=== PATIENT | female | born 1940 | race African-American/Black ===

== ENCOUNTER 2018-06-21 17:16 | Inpatient (IN) | payer OTHER ==
[~2018-06-21] VITALS: Ht 167.6 cm; Wt 120.2 kg
[~2018-06-21 17:16] MED LIST: ALLOPURINOL100 MG PO; AMLODIPINE BESY10 MG PO; ASPIR 8181 MG PO; ATORVASTATIN CA10 MG PO; LOSARTAN POTASS25 MG PO; METOPROLOL SUCC50 MG PO
[2018-06-21] MEDS ORDERED: ASPIRIN 81 MG CHEW TAB PO ONE ×2 (18:00)
[2018-06-21 18:13] LABS: BASOPHILS % 0.3 % (0.0-1.0); EOSINOPHILS # (AUTO) 0.1 (0.0-0.4); HEMATOCRIT 39.5 % (34.2-44.1); HEMOGLOBIN 13.1 g/dL (12.0-16.0); LYMPHOCYTES # (AUTO) 3.1 (1.0-3.2); LYMPHOCYTES % 38.6 % (18.0-39.1); MEAN CORPUSCULAR HEMOGLOBIN 29.6 pg (28-32); MEAN CORPUSCULAR HGB CONC 33.2 g/dL (31-35); MEAN CORPUSCULAR VOLUME 89.2 fL (81-99); MONOCYTES # (AUTO) 0.9 (0.2-0.8); MONOCYTES % 11.6 % (4.4-11.3); NEUTROPHILS # (AUTO) 3.8 (2.1-6.9); NEUTROPHILS % 48.2 % (38.7-80.0); PLATELET COUNT 276 x10e3/uL (140-360); RED BLOOD COUNT 4.43 x10e6/uL (3.6-5.1); RED CELL DISTRIBUTION WIDTH 13.2 % (11.7-14.4)
[2018-06-21 18:15] LABS: INR 0.95; PROTHROMBIN TIME 13.6 seconds (11.9-14.5)
[2018-06-21 18:16] LABS: PARTIAL THROMBOPLASTIN TIME 26.7 seconds (23.8-35.5)
[2018-06-21 18:24] LABS: ALBUMIN 3.9 g/dL (3.5-5.0); CALCIUM 9.5 mg/dL (8.4-10.2); CREATININE, SERUM 1.16 mg/dL (0.57-1.11)
[2018-06-21 18:30] LABS: CREATINE KINASE MB 5.8 ng/mL (0-5.0)
[2018-06-21 19:13] LABS: BILIRUBIN,URINE NEGATIVE (NEGATIVE); CLARITY,URINE SL CLOUDY (CLEAR); COLOR,URINE YELLOW (YELLOW); KETONES,URINE NEGATIVE (NEGATIVE); LEUKOCYTE ESTERASE ,URINE 1+ (NEGATIVE); NITRITE,URINE NEGATIVE (NEGATIVE); PROTEIN,URINE DIPSTICK TRACE (NEGATIVE); URINE UROBILINOGEN 0.2 mg/dL (0.2 - 1)
--- NOTE | 2018-06-21 19:17 | NUR ---
Walking rounds with Matthieu. RN. Patient in no distress at this time.
[2018-06-21 19:23] LABS: BACTERIA,URINE MANY /HPF; EPITHELIAL CELLS,URINE FEW /LPF
--- NOTE | 2018-06-21 19:32 | Diagnostic Imaging Report ---
EXAMINATION: CHEST SINGLE (PORTABLE) COMPARISON: None INDICATION: Intermittent chest pain, shortness of breath DISCUSSION: Frontal view of the chest obtained at 1819 hours. HEART AND MEDIASTINUM: The heart is enlarged LINES: None. LUNGS: Pulmonary vasculature is prominent. There is mild bronchial wall thickening. No confluent infiltrates. No interstitial edema. PLEURA: No pleural effusion or pneumothorax. BONES AND SOFT TISSUES: No focal osseous lesion. The soft tissues are normal. IMPRESSION: Cardiomegaly and vascular congestion. Signed by: Dr. Steven Soler MD on 06/21/2018 7:17 PM
[2018-06-21] MEDS ORDERED: MORPHINE SULFATE 2 MG/ML SYR IV PRN (20:00)
[2018-06-21] MEDS ORDERED: NITROGLYCERIN 0.4 MG SUBL SL PRN (20:00)
[2018-06-21] MEDS ORDERED: ONDANSETRON HCL INJ 2 MG/ML VIAL IV PRN (20:00)
[2018-06-21] MEDS: ENOXAPARIN SODIUM INJ 100 MG/ML SYR SC SCH (20:01)
--- OUTSIDE RECORDS SUMMARY | 2018-06-21 20:12 | XMS REPORT ---
Author Author [facility] Address Unknown Phone Unavailable Care Team Providers Care Plastic Worker Name Role Phone Blanka ARCE Unavailable Unavailable Problems This patient has no known problems. Allergies, Adverse Reactions, Alerts This patient has no known allergies or adverse reactions. Medications This patient has no known medications. Results Test Description Test Time Test Comments Text Results Atomic Results Result Comments CHEST SINGLE (PORTABLE) 2018-06-21 19:16:00 [facility] [address] [place] [address] Patient Name: EDISON DACOSTA MR #: [id number] : 1940 Age/Sex: 78/F Req #: [id number] Adm Physician: Ordered by: JENNIFER ARCE MD Report #: [id number] Location: ER Room/Bed: Procedure: [id number] DX/CHEST SINGLE (PORTABLE) Exam Date: 06/21/18 Exam Time: 1832 REPORT STATUS: Signed EXAMINATION: CHEST SINGLE (PORTABLE) COMPAR KAIT: None INDICATION: Intermittent chest pain, shortness of breath DISCUSSION: Frontal view of the chest obtained at 1819 hours. HEART AND MEDIASTINUM: The heart is enlarged LINES: None. LUNGS: Pulmonary vasculature is prominent. There is mild bronchial wall thickening. No confluent infiltrates. No interstitial edema. PLEURA: No pleural effusion or pneumothorax. BONES AND SOFT TISSUES: No focal osseous lesion. The soft tissues are normal. IMPRESSION: Cardiomegaly and vascular congestion. Signed by: Dr. Susu Soler MD on 06/21/2018 7:17 PM Dictated By: SUSU SOLER MD 16 Transcribed By: CASIE on 06/21/181916 COPY TO: JENNIFER ARCE MD
[2018-06-21] MEDS ORDERED: MORPHINE SULFATE INJ 4 MG/ML INJ IV PRN (20:15)
--- NOTE | 2018-06-21 20:37 | NUR ---
report given to patrice bedolla
[2018-06-21] MEDS: METOPROLOL TARTRATE 25 MG TAB PO SCH (22:35)
--- NOTE | 2018-06-21 22:54 | NUR ---
RECEIVED PATIENT AAOX4, BREATHING EVEN AND UNLABORED, ON 2L/NC. DENIES ANY PAIN, DENIES CHEST PAIN/TIGHTNESS/DISCOMFORT. SKIN INTACT. 20G LEFT AC SALINE LOCKED, PATENT AND INTACT. TELE # [id number] SR. UPDATED PATIENT ON PLAN OF CARE. NO NEEDS AT THIS TIME. BED LOCKED AND IN LOWEST POSITION, CALL LIGHT WITHIN REACH. BED ALARM ON, SLIP RESIST SOCKS ON. ENCOURAGED TO CALL FOR ASSISTANCE, PATIENT VERBALIZED UNDERSTANDING. WILL CONTINUE TO MONITOR PATIENT CLOSELY.
[2018-06-21 23:56] VITALS: BP 181/110
[2018-06-22] VITALS (8 sets, daily range): BP systolic 155–190; BP diastolic 74–110
[2018-06-22] MEDS: NITROGLYCERIN 2% OINT 1 GM PKT TOP SCH ×5 (00:30→23:27)
[2018-06-22 02:25] LABS: CREATINE KINASE MB 9.8 ng/mL (0-4.3)
[2018-06-22 06:36] LABS: BASOPHILS % 0.5 % (0.0-1.0); EOSINOPHILS # (AUTO) 0.1 (0.0-0.4); EOSINOPHILS % 1.5 % (0.0-6.0); HEMATOCRIT 38.6 % (34.2-44.1); HEMOGLOBIN 12.4 g/dL (12.0-16.0); LYMPHOCYTES # (AUTO) 2.7 (1.0-3.2); LYMPHOCYTES % 44.2 % (18.0-39.1); MEAN CORPUSCULAR HEMOGLOBIN 29.2 pg (28-32); MEAN CORPUSCULAR HGB CONC 32.1 g/dL (31-35); MEAN CORPUSCULAR VOLUME 90.8 fL (81-99); MONOCYTES # (AUTO) 0.9 (0.2-0.8); MONOCYTES % 14.7 % (4.4-11.3); NEUTROPHILS # (AUTO) 2.4 (2.1-6.9); NEUTROPHILS % 38.9 % (38.7-80.0); PLATELET COUNT 217 x10e3/uL (140-360); RED BLOOD COUNT 4.25 x10e6/uL (3.6-5.1); RED CELL DISTRIBUTION WIDTH 13.5 % (11.7-14.4)
[2018-06-22 07:01] LABS: CREATINE KINASE MB 6.5 ng/mL (0-5.0)
[2018-06-22 07:08] LABS: ALANINE AMINOTRANSFERASE 30 IU/L (0-55); ALBUMIN 3.4 g/dL (3.5-5.0); ALKALINE PHOSPHATASE 55 IU/L (40-150); BLOOD UREA NITROGEN 19 mg/dL (7-26); BUN/CREATININE RATIO 22 (6-25); CALCIUM 9.1 mg/dL (8.4-10.2); CARBON DIOXIDE 25 mmol/L (22-29); CHLORIDE 106 mmol/L (98-107); CHOL/HDL RATIO 3.4 (3.0-3.6); CHOLESTEROL 150 MD/DL (0-199); CREATININE, SERUM 0.87 mg/dL (0.57-1.11); EST GLOMERULAR FILTRATION RATE > 60 ML/MIN (60-); GLUCOSE 106 mg/dL (74-118); HDL CHOLESTEROL 44 MG/DL (40-60); LDL CHOLESTEROL 90 MG/DL (60-130); SODIUM 139 mmol/L (136-145); TRIGLYCERIDES 81 MG/DL (0-149)
--- NOTE | 2018-06-22 07:08 | NUR ---
TROPONIN ELEVATED, TRENDING UP. CALL PLACED TO DR. POWELL ANSWERING SERVICE. AWAITING CALL BACK. REPORT GIVEN TO ONCOMING NURSE.
--- NOTE | 2018-06-22 07:15 | NUR ---
Chantal ARCHIBALD NP AWARE OF ELEVATED TROPONIN, NO ORDERS RECEIVED.
--- NOTE | 2018-06-22 07:53 | NUR ---
REPORT RECEIVED FROM OUT GOING NURSE, LAB CALLED IN ELEVATED TROPONIN LEVEL, DR. ARCHIBALD NOTIFIED, NO NEW ORDERS. PT IN BED DENIES CHEST PAIN OR DISCOMFORT. WILL CONTINUE TO MONITOR.
[2018-06-22] MEDS ORDERED: FAMOTIDINE 20 MG/2 ML VIAL IV SCH (08:00)
[2018-06-22] MEDS ORDERED: INFLUENZA VIRUS VAC SPLIT INJ 0.5 ML SYR IM ONE ×2 (09:00→13:00)
[2018-06-22] MEDS: METOPROLOL TARTRATE 25 MG TAB PO SCH ×2 (09:40→20:45)
[2018-06-22] MEDS: ENOXAPARIN SODIUM INJ 100 MG/ML SYR SC SCH ×2 (09:40→20:45)
[2018-06-22] MEDS: ASPIRIN 325 MG TAB EC PO SCH (09:41)
[2018-06-22 11:45] LABS: CREATINE KINASE MB 5.2 ng/mL (0-5.0)
[2018-06-22] MEDS ORDERED: ONDANSETRON HCL INJ 2 MG/ML VIAL IV PRN (11:45)
--- NOTE | 2018-06-22 13:06 | History and Physical ---
PRIMARY CARE PHYSICIAN: Dr. Eugene Santos WATER TRUCK DRIVER: Dr. Roland Barrios. CHIEF COMPLAINT: Non-ST elevation myocardial infarction associated with chest pain. HISTORY: This is a 78-year-old female, obese with hypertension and dyslipidemia. She had occasional chest discomfort, thought it could be reflux where the patient was doing okay off and on, but however when the patient go to the emergency room, she was having exertional chest pressure and pain much intense in duration than compared to previously, which brought the patient subsequently to the emergency room here. Her cardiac enzyme is trending upward 0.55 to 1.539. The patient is admitted for non-ST elevation myocardial infarction. Her echocardiogram reveals an ejection fraction of approximately 45-50%, normal sinus rhythm, with ST-T wave abnormality, possible inferior ischemia. PAST MEDICAL HISTORY: Hypertension, dyslipidemia, osteoarthritis, and obesity. PAST SURGICAL HISTORY: Complete hysterectomy. SOCIAL HISTORY: The patient does not smoke or use alcohol. No recreational drug use. ALLERGIES: NO KNOWN ALLERGIES. HOME MEDICATIONS: She is on allopurinol, aspirin, Lipitor, losartan, and metoprolol succinate. REVIEW OF SYSTEMS: Chest pressure and pain, resolved now. PHYSICAL EXAMINATION GENERAL: The patient is in no acute distress. She is awake. VITAL SIGNS: Temperature is 99. Blood pressure 157/74. Pulse rate is 85. Respirations 18. HEENT: Normocephalic, atraumatic, anicteric. NECK: Supple grossly. PULMONARY: Diminished breath sounds without any wheezing or rales. CARDIOVASCULAR: S1 and S2. Regular rate and rhythm. ABDOMEN: Soft. Positive bowel sounds. Grossly nontender. No distention. Obesity. EXTREMITIES: No cyanosis or edema. NEUROLOGIC: No focal deficit. LABORATORY: Sodium is 139, potassium 4, chloride 106, bicarb 25, BUN 19, and creatinine 0.8. Glucose 106. WBC 6.04, hemoglobin 12.4, hematocrit 38.6, platelets is 270,000. IMPRESSION 1. Non-ST elevation myocardial infarction with abnormal EKG. Ejection fraction is low 45-50%. 2. Obesity. 3. Hypertension. 4. Dyslipidemia. PLAN: Cardiac workup. Echocardiogram done. Dr. Roland Barrios will see the patient. This patient may need cardiac catheterization pending further evaluation by Cardiology. I discussed with the patient and all her family members at bedside. All questions were answered. Job#: [id number] ESTEFANIA cc:DR. EUGENE SANTOS
[2018-06-22] MEDS ORDERED: METOPROLOL TARTRATE INJ 1 MG/ML VIAL IV PRN (15:00)
[2018-06-22 16:00] LABS: ALBUMIN 3.5 g/dL (3.5-5.0); BILIRUBIN,DIRECT 0.3 mg/dL (0.0-0.5); CHOL/HDL RATIO 3.3 (3.0-3.6); MAGNESIUM 2.1 MG/DL (1.3-2.1); PHOSPHORUS 3.1 MG/DL (2.3-4.7)
[2018-06-22 16:14] LABS: THYROID STIMULATING HORMONE 0.022 uIU/mL (0.350-4.940)
[2018-06-22] MEDS: FAMOTIDINE 20 MG TAB PO SCH (17:23)
[2018-06-22] MEDS: ALLOPURINOL 100 MG TAB PO SCH (17:23)
--- NOTE | 2018-06-22 17:51 | NUR ---
PT IN BED VISITING WITH FAMILY AND FRIENDS. DENIES ANY PAIN OR DISCOMFORT AT MOMENT. REMAINED STABLE ALL SHIFT.
--- NOTE | 2018-06-22 19:25 | NUR ---
PATIENT RECEIVED. PATIENT IS RESTING IN BED, AAOX3. RESP EVEN AND UNLABORED. NO ACUTE DISTRESS NOTED. PATIENT DENIES OF ANY PAIN OR DISCOMFORT. TELE IN PLACE. FAMILY AT BED SIDE. CALL LIGHT WITHIN REACH. INSTRUCT TO CALL FOR ASSISTANCE. BED LOW/LOCKED. CONTINUE TO MONITOR CLOSELY
--- NOTE | 2018-06-22 20:40 | NUR ---
CHARGE NURESE START NEW IV TO RIGHT FOREARM 22G. PATIENT TOLERATED WELL
[2018-06-22] MEDS: HYDRALAZINE HCL 20 MG/ML VIAL IV PRN (23:27)
[2018-06-23] VITALS: BP 166/82
[2018-06-23 04:00] VITALS: BP 143/63
[2018-06-23] MEDS: NITROGLYCERIN 2% OINT 1 GM PKT TOP SCH ×3 (06:19→17:57)
--- NOTE | 2018-06-23 07:15 | NUR ---
PT RECEIVED FROM OUT GOING NURSE, NO DISTRESS NOTED.
[2018-06-23 08:00] VITALS: BP 180/95
[2018-06-23] MEDS: METOPROLOL TARTRATE 25 MG TAB PO SCH ×2 (09:27→20:02)
[2018-06-23] MEDS: LOSARTAN POTASSIUM 25 MG TAB PO SCH (09:27)
[2018-06-23] MEDS: ASPIRIN 325 MG TAB EC PO SCH (09:27)
[2018-06-23] MEDS: FAMOTIDINE 20 MG TAB PO SCH ×2 (09:27→17:57)
[2018-06-23] MEDS: ENOXAPARIN SODIUM INJ 100 MG/ML SYR SC SCH ×2 (09:27→20:01)
[2018-06-23] MEDS: ATORVASTATIN 10 MG TAB PO SCH (09:28)
[2018-06-23] MEDS: HYDRALAZINE HCL 20 MG/ML VIAL IV PRN ×2 (09:28→20:10)
[2018-06-23] MEDS: ALLOPURINOL 100 MG TAB PO SCH ×2 (09:28→17:57)
--- NOTE | 2018-06-23 10:19 | NUR ---
PRN HYDRALAZINE 10MG IV GIVEN FOR B/P 180/95 PER MD ORDERS TO GIVE IF SBP > 160. WILL CONTINUE TO MONITOR. PT DENIES ANY PAIN.
[2018-06-23 12:00] VITALS: BP 161/69
[2018-06-23 13:45] VITALS: BP 161/69
--- NOTE | 2018-06-23 14:09 | NUR ---
PT SEEN BY DR. ARCHIBALD, ORDERS FOR NPO AFTER MIDNIGHT WHILE WAITING TO SEE IF UPFITTER OPENS TOMORROW. SHE WILL TEXT DR DR. POWELL.
--- NOTE | 2018-06-23 18:21 | NUR ---
PT IN BED NO DISTRESS NOTED, PT NOTIFIED OF NPO STATUS AFTER MIDNIGHT.REPORT PASSED ON NEXT SHIFT.
--- NOTE | 2018-06-23 19:25 | NUR ---
PATIENT RECEIVED. PATIENT IS RESTING IN BED, AAOX4. RESP EVEN AND UNLABORED. NO ACUTE DISTRESS NOTED. PATIENT DENIES OF ANY PAIN OR DISCOMFORT. TELE IN PLACE. FAMILY AT BED SIDE. CALL LIGHT WITHIN REACH. INSTRUCT TO CALL FOR ASSISTANCE. BED LOW/LOCKED. CONTINUE TO MONITOR CLOSELY
[2018-06-23 20:27] VITALS: BP_SYST 165; BP_SYST 197; BP_DIAS 78; BP_DIAS 80
[2018-06-24] VITALS (7 sets, daily range): BP systolic 154–197; BP diastolic 64–80
[2018-06-24] MEDS: HYDRALAZINE HCL 20 MG/ML VIAL IV PRN ×2 (00:26→06:11)
[2018-06-24] MEDS: NITROGLYCERIN 2% OINT 1 GM PKT TOP SCH ×4 (00:26→16:52)
[2018-06-24] MEDS: ACETAMINOPHEN 325 MG TAB PO PRN ×2 (00:27→18:09)
--- NOTE | 2018-06-24 07:00 | NUR ---
DR POWELL CALLED AND ORDERED FOR PATIENT TO HAVE HEART CATH THIS MORNING. NOTIFIED INFORMATION SYSTEMS PROJECT MANAGER, PRESSING MACHINE TENDER AND ON COMING NURSE.
[2018-06-24] MEDS: FAMOTIDINE 20 MG TAB PO SCH ×2 (08:44→16:00)
[2018-06-24] MEDS: ALLOPURINOL 100 MG TAB PO SCH ×2 (08:44→16:00)
[2018-06-24] MEDS: METOPROLOL TARTRATE 25 MG TAB PO SCH ×2 (08:45→20:50)
[2018-06-24] MEDS: LOSARTAN POTASSIUM 25 MG TAB PO SCH (08:45)
[2018-06-24] MEDS: ATORVASTATIN 10 MG TAB PO SCH (08:45)
[2018-06-24] MEDS: ASPIRIN 325 MG TAB EC PO SCH (09:00)
[2018-06-24] MEDS ORDERED: FENTANYL CITRATE/PF 100MCG/2 ML INJ ONE (10:46)
[2018-06-24] MEDS ORDERED: SODIUM CHLORIDE 0.9% 1000ML 1,000 ML ONE (10:46)
[2018-06-24] MEDS ORDERED: MIDAZOLAM HCL 2 MG/2 ML VIAL ONE (10:46)
[2018-06-24] MEDS ORDERED: IOPAMIDOL 370 MG/ML 200 ML INFUS..BTL INJ ONE (10:46)
[2018-06-24] MEDS ORDERED: HEPARIN SOD/SOD CHLORIDE 2,000 ML ONE (10:46)
[2018-06-24] MEDS ORDERED: LIDOCAINE HCL 2% LOCAL 20 ML VIAL ONE (10:46)
--- NOTE | 2018-06-24 13:27 | NUR ---
PT CAME BACK FROM PROCEDURE ( LT HEART CATH) 1140, V/S STABLE, BED REST FOR 6 HOURS, NURSE REPORTED PT HAS 3 SEVERE VESSELS BLOCKAGE AND WILL NEED A BYPASS SURGERY. RT GROIN AREA LOOKS CLEAN, NO SWOLLEN OR REDNESS, PT IS LYING ON BACK. V/S CHECKS Q 15 MINS X3 AND 30 MINS X 3, THEN WILL CONTINUE Q 4 HOURS. PT IN BED .
--- NOTE | 2018-06-24 19:21 | NUR ---
PT IN BED NO DISTRESS NOTED, RT GROIN SITE LOOKS CLEAN AND DRY.
[2018-06-24] MEDS: SODIUM CHLORIDE 0.9% 1000ML 1,000 ML IV SCH (20:50)
[2018-06-25] VITALS (7 sets, daily range): BP systolic 139–199; BP diastolic 72–95
[2018-06-25] MEDS: HYDRALAZINE HCL 20 MG/ML VIAL IV PRN ×3 (00:40→20:24)
[2018-06-25] MEDS: NITROGLYCERIN 2% OINT 1 GM PKT TOP SCH ×2 (00:40→06:10)
--- NOTE | 2018-06-25 01:05 | Consultation ---
DATE OF CONSULTATION: June 24, 2018 REASON FOR CONSULT: Coronary artery disease, non-ST elevation, myocardial infarction, evaluation for coronary artery bypass surgery; requested by Dr. Yahir Barrios. APPLIANCE SALES ASSOCIATE: Dr. Eugene Arriaza. Dr. Juan Miguel Ulloa has been seen the patient in the hospital. HISTORY: I saw and evaluated this patient on June 24, 2018. She is a 78-year-old lady who has been having occasional chest discomfort over the past year. Pain comes on with exertion and resolves with rest. However, the chest pain persisted yesterday and she came to the emergency room with increasing chest pain. Her cardiac enzymes were positive with troponin 1.539. EKG was at baseline. She ruled in for a unj-SZ-mekbwfeah myocardial infarction. Echocardiogram revealed EF of 45% to 50%. There were ST-T-wave abnormalities consistent with possible inferior ischemia. A cardiac catheterization was completed. This was performed by Dr. Barrios today. Catheterization revealed LVEF 40%. There was an occluded RCA, luminal lesions in the left main, and 80% lesion of the mid LAD, a 60% lesion of the first marginal and a 70% lesion of the second marginal. Surgical revascularization has been recommended. There was no history of PND or orthopnea. The patient has not had previous myocardial infarction or coronary artery stenting. She can go to [employer] and get around as far as she likes without claudication or chest pain in most instances. No fevers or chills. PAST MEDICAL HISTORY: Positive for hyperlipidemia, hypertension, and osteoarthritis. PAST SURGICAL HISTORY: Positive for hysterectomy. SOCIAL HISTORY: Negative for smoking, alcohol or IV drugs. ALLERGIES: NONE KNOWN. MEDICATIONS AT HOME: Include allopurinol, aspirin, Lipitor, losartan and Lopressor. FAMILY HISTORY: Negative for early coronary artery disease. REVIEW OF SYSTEMS: GENERAL: Negative for fatigue and malaise. NEUROLOGIC: Negative for focal weakness in extremities or dysarthria. HEENT: Negative for decreased vision or decreased hearing. CARDIAC: Positive as above. Negative for palpitations. PULMONARY: Negative for shortness of breath or wheezing. GI: No constipation or diarrhea. : Negative for hematuria or dysuria. ENDOCRINE: Negative for polyuria or polydipsia. VASCULAR: Negative for claudication. SKIN: Negative for rashes or itching. HEMATOLOGIC: Negative for clotting or bleeding. INFECTIOUS: Negative for fevers or sweating. PSYCHIATRIC: Negative for depression or anxiety. PHYSICAL EXAMINATION: GENERAL: Well-developed, somewhat overweight lady, lying flat in bed, in no apparent distress. Her son is at the bedside. VITAL SIGNS: Blood pressure 140/70, pulse 80 and regular, respirations are 16 and unlabored. NECK: Supple and nontender. No JVD. CARDIAC: Showed a regular rate and rhythm. There is a normal S1 and S2. There is no S3, S4, rub, or murmur. LUNGS: Clear to auscultation and percussion bilaterally. ABDOMEN: Globoid and benign. Good bowel sounds. No hepatosplenomegaly. BACK: No CVA tenderness. No muscular spasm. EXTREMITIES: No cyanosis, clubbing, or edema. VASCULAR: Carotids 2+/2+ bilaterally. No carotid bruits. Brachials, radials and ulnars are 1+/2+ bilaterally. Femorals are 2+/2+ bilaterally. I could not palpate any pulses distal to either femoral artery in either lower extremity. SKIN: No rashes or non-healing ulcers. MUSCULOSKELETAL: Full range of motion at all joints. No joint swelling. NEUROLOGIC: Cranial nerves II through XII intact. Sensation is intact to light touch and pinprick bilaterally. Strength 5/5 in all extremities. LYMPHATIC: Negative for cervical, clavicular, femoral adenopathy. LABORATORIES: White count is 6.04, hemoglobin 12.4, hematocrit 38.6, platelet count 217,000, INR is 0.95 with PT 13.6 and PTT 26.7. Sodium is 139, potassium 4.0, BUN 19, creatinine 0.87. Liver function tests are normal. Troponin I peak is 1.539, albumin 3.4, and total protein 6.9. Chest x-ray shows cardiomegaly and vascular congestion. IMPRESSION AND PLAN: Severe coronary artery disease. I have reviewed the angiogram as above. I described coronary artery bypass surgery to the patient and her son. Evaluation for surgery has been initiated. Thank you very much for asking me to see this nice lady. Job#: [id number] ALFONSO
[2018-06-25 05:22] LABS: BASOPHILS % 0.4 % (0.0-1.0); EOSINOPHILS # (AUTO) 0.1 (0.0-0.4); EOSINOPHILS % 1.7 % (0.0-6.0); HEMATOCRIT 37.5 % (34.2-44.1); HEMOGLOBIN 12.2 g/dL (12.0-16.0); LYMPHOCYTES # (AUTO) 1.7 (1.0-3.2); LYMPHOCYTES % 31.8 % (18.0-39.1); MEAN CORPUSCULAR HEMOGLOBIN 29.2 pg (28-32); MEAN CORPUSCULAR HGB CONC 32.5 g/dL (31-35); MEAN CORPUSCULAR VOLUME 89.7 fL (81-99); MONOCYTES # (AUTO) 0.8 (0.2-0.8); NEUTROPHILS # (AUTO) 2.8 (2.1-6.9); NEUTROPHILS % 51.9 % (38.7-80.0); PLATELET COUNT 215 x10e3/uL (140-360); RED BLOOD COUNT 4.18 x10e6/uL (3.6-5.1); RED CELL DISTRIBUTION WIDTH 13.6 % (11.7-14.4)
[2018-06-25 05:42] LABS: ALANINE AMINOTRANSFERASE 32 IU/L (0-55); ALBUMIN 3.5 g/dL (3.5-5.0); ALBUMIN/GLOBULIN RATIO 0.9 (0.8-2.0); ALKALINE PHOSPHATASE 53 IU/L (40-150); ANION GAP 13.8 mmol/L (8-16); BLOOD UREA NITROGEN 14 mg/dL (7-26); BUN/CREATININE RATIO 19 (6-25); CALCIUM 9.1 mg/dL (8.4-10.2); CARBON DIOXIDE 20 mmol/L (22-29); CHLORIDE 106 mmol/L (98-107); CREATININE, SERUM 0.73 mg/dL (0.57-1.11); EST GLOMERULAR FILTRATION RATE > 60 ML/MIN (60-); GLUCOSE 99 mg/dL (74-118); POTASSIUM 3.8 mmol/L (3.5-5.1); SODIUM 136 mmol/L (136-145)
--- NOTE | 2018-06-25 07:30 | NUR ---
PT UP IN BED SLEEPING NO DISTRESS NTOED,
[2018-06-25] MEDS: METOPROLOL TARTRATE 25 MG TAB PO SCH ×2 (08:20→20:24)
[2018-06-25] MEDS: ASPIRIN 325 MG TAB EC PO SCH (09:00)
[2018-06-25] MEDS: ALLOPURINOL 100 MG TAB PO SCH ×2 (09:00→17:00)
[2018-06-25] MEDS: ATORVASTATIN 10 MG TAB PO SCH (09:00)
[2018-06-25] MEDS: LOSARTAN POTASSIUM 25 MG TAB PO SCH (09:00)
[2018-06-25] MEDS: FAMOTIDINE 20 MG TAB PO SCH ×2 (09:05→16:30)
--- NOTE | 2018-06-25 12:40 | NUR ---
CREDIT COLLECTIONS ANALYST ATTEMPTED TO CALL TRANSFER CENTER AWAITING DR WRIGHT
[2018-06-25] MEDS: SODIUM CHLORIDE 0.9% 1000ML 1,000 ML IV SCH (16:30)
[2018-06-25] MEDS: ACETAMINOPHEN 325 MG TAB PO PRN (20:35)
[2018-06-26] VITALS: BP_SYST 159; BP_SYST 199; BP_DIAS 78; BP_DIAS 95
[2018-06-26 04:00] VITALS: BP 200/91
[2018-06-26] MEDS: HYDRALAZINE HCL 20 MG/ML VIAL IV PRN ×2 (04:49→09:06)
[2018-06-26] MEDS: SODIUM CHLORIDE 0.9% 1000ML 1,000 ML IV SCH (05:45)
--- NOTE | 2018-06-26 07:45 | NUR ---
PT RECEIVED IN BED NO S/S OF DISTRESS NOTED
[2018-06-26 08:10] VITALS: BP 200/91
[2018-06-26 08:37] VITALS: BP 195/79
[2018-06-26] MEDS ORDERED: ISOSORBIDE DINITRATE 20 MG TAB PO SCH (09:00)
[2018-06-26] MEDS: ASPIRIN 325 MG TAB EC PO SCH (09:05)
[2018-06-26] MEDS: METOPROLOL TARTRATE 25 MG TAB PO SCH (09:05)
[2018-06-26] MEDS: FAMOTIDINE 20 MG TAB PO SCH (09:05)
[2018-06-26] MEDS: ALLOPURINOL 100 MG TAB PO SCH (09:06)
[2018-06-26] MEDS: LOSARTAN POTASSIUM 25 MG TAB PO SCH (09:06)
[2018-06-26] MEDS: ATORVASTATIN 10 MG TAB PO SCH (09:06)
--- NOTE | 2018-06-26 10:37 | NUR ---
Head Of Integrated Media to bedside to discuss plan of care with patient/family. CM/SW role and care transitions discussed. Anticipated discharge plan discussed along with duration of care. CM/SW discussed patients right to make decisions in care. CM/SW work hours given. Patient lives: alone Admit/Transfer: thru ED, from home POA/Emergency contact: kiran Montenegro [phone] Current/Previous Home Health: none PCP/Follow-up Care: Dr. Anjelica Arriaza Current/Previous DME: none; pt reports she is independent and still drives Other Services: none Employment Status: retired Areas of Concerns: Referral Needs: need transfer to [facility] for CABG; choice letter signed and placed in chart. Copy to pt. Education Needs: CABG IMM/PATEL given and signed (if applicable): none at this time Goal for discharge[place] [facility] [place] CM/SW left business card at the bedside with contact information. Name and number was also written on the patients whiteboard. Patient verbalized understanding of discussion. CM will follow-up with ongoing discharge and transition of care needs.
--- NOTE | 2018-06-26 11:10 | NUR ---
Spoke with Savannah at transfer center to initiate transfer to [facility]. Faxed facesheet and H&P as requested to [phone].
--- NOTE | 2018-06-26 11:39 | NUR ---
Received call from Radha Eli RN development coordinator, at [facility] with bed assignment. Approval time 1139 [facility] [address] [place] [address] call report to [phone] Bed [address] Hernandez Yarbrough MOT completed and placed at nurse's station. CM informed ELISE Storm of acceptance and MOT. RN asked to faxed completed MOT to [phone]. CM also informed pt of bed.
[2018-06-26 12:04] VITALS: BP 174/82
--- NOTE | 2018-06-26 12:06 | Operative Report ---
DATE OF PROCEDURE: June 24, 2018 PROCEDURES PERFORMED: Cardiac catheterization report. INDICATIONS: Klt-HI-gcupswwrt MO. ANESTHESIA: 2% lidocaine for local anesthesia. Fentanyl and Versed for conscious sedation. BLOOD LOSS: 2 mL. DESCRIPTION OF PROCEDURE: After informed consent, patient was brought to the cardiac catheterization laboratory and placed on the table. Both groins were painted and draped in a sterile fashion. Lidocaine was injected to right groin for local anesthesia. Right femoral artery was accessed by Seldinger technique, and a 5-[place]atorial [place] sheath was placed in the right femoral artery. Left main artery was cannulated using a JL4 5-Equatorial [place] catheter. Coronary angiogram was performed and images obtained in multiple views. The right coronary artery was cannulated using a 3DRC 5-[place]atorial [place] catheter. Coronary angiogram was performed and images obtained in multiple views. LV gram was performed using a pigtail catheter. Patient tolerated the procedure without any complications. REPORT LEFT MAIN: Normal caliber, has luminal irregularities. LEFT ANTERIOR DESCENDING: Normal caliber, 70% to 80% mid lesion followed by another 70% mid lesion. The 2nd obtuse mild branch is a moderate size vessel and has 60% to 70% proximal lesion. LEFT CIRCUMFLEX: Normal caliber and has luminal irregularities. The 2nd obtuse marginal branch is a large branch and has a 70% proximal lesion. The 1st obtuse marginal branch is a smaller branch with about a 50% to 60% mid lesion. RIGHT CORONARY ARTERY: Totally occluded in its mid segment. LV-GRAM: Diffuse hyperkinesis of the left ventricle is noted. Overall ejection fraction is about a 40%. HEMODYNAMICS: Aortic pressure is 171/65. LV pressure is 171/70. LVEDP is 18. PLAN: CABG. Job#: [id number] MAHIN
--- NOTE | 2018-06-26 14:20 | NUR ---
PT TRANSFERRED TO [facility]. LEFT VIA EMS, ALERT AND ORIENTED X4,NO DISTRESS NOTED. IV LINE INTACT. 02 NEEDED. Addendum: 06/26/18 at 1901 by Emeterio Simpson RN 1520 INSTEAD OF 1420. ERROR
[2018-06-27] MEDS ORDERED: ATORVASTATIN 40 MG TAB PO SCH (09:00)
== END 2018-06-26 15:40 | disposition short-term general hospital (02) | DRG 281 ==
LOC: ER 17:16 → ERHOLD 20:09 → MED/SURG2 22:53
PROVIDERS: ADMIT Internal Medicine; ATTEND Internal Medicine
PROC: 4A023N7 Measurement of Cardiac Sampling and Pressure, Left Heart, Percutaneous Approach (ICD-10-PCS; principal; 2018-06-24)
PROC: B2111ZZ Fluoroscopy of Multiple Coronary Arteries using Low Osmolar Contrast (ICD-10-PCS; 2018-06-24)
PROC: B2151ZZ Fluoroscopy of Left Heart using Low Osmolar Contrast (ICD-10-PCS; 2018-06-24)
DX: I21.4 Non-ST elevation (NSTEMI) myocardial infarction (principal); Z68.41 Body mass index [BMI] 40.0-44.9, adult; I25.119 Atherosclerotic heart disease of native coronary artery with unspecified angina pectoris; I10 Essential (primary) hypertension; E78.5 Hyperlipidemia, unspecified; E66.01 Morbid (severe) obesity due to excess calories; I27.20 Pulmonary hypertension, unspecified
CPT/HCPCS: 36415; 71045; 80053; 80061; 80076; 81001; 82306; 82550; 82553; 83735; 83880; 84100; 84443; 84484; 84550; 85025; 85610; 85730; 93005; 93306; 93458; 99284; J0360; J1650; J2001; J2250; J7030; Q9967

== ENCOUNTER 2019-08-28 15:28 | Inpatient (IN) | payer OTHER ==
[~2019-08-28] VITALS: Ht 165.1 cm; Wt 120.2 kg
[2019-08-28] MEDS ORDERED: IPRATROPIUM BROMIDE 0.02% 2.5 ML NEB NEB STA (16:05)
[2019-08-28] MEDS ORDERED: CEFTRIAXONE SOD 1 GM/NS 50 ML 50 ML IV STA (16:05)
[2019-08-28] MEDS ORDERED: SODIUM CHLORIDE 0.9% 1000ML 1,000 ML IV STA (16:05)
[2019-08-28] MEDS ORDERED: ALBUTEROL SULF 0.083% NEB SOLN 3 ML NEB NEB STA (16:05)
[2019-08-28] MEDS ORDERED: AZITHROMYCIN 500MG/NS 250 ML 250 ML IV STA (16:05)
[2019-08-28] MEDS ORDERED: IBUPROFEN 600 MG TAB PO STA (16:08)
[2019-08-28] MEDS ORDERED: ASPIRIN 81 MG CHEW TAB PO ONE (16:15)
[2019-08-28 16:34] LABS: BASOPHILS % 0.3 % (0.0-1.0); EOSINOPHILS % 0.1 % (0.0-6.0); HEMATOCRIT 41.5 % (34.2-44.1); HEMOGLOBIN 13.5 g/dL (12.0-16.0); LYMPHOCYTES % 11.1 % (18.0-39.1); MEAN CORPUSCULAR HEMOGLOBIN 30.3 pg (28-32); MEAN CORPUSCULAR HGB CONC 32.5 g/dL (31-35); MONOCYTES # (AUTO) 0.8 (0.2-0.8); MONOCYTES % 8.6 % (4.4-11.3); NEUTROPHILS # (AUTO) 7.3 (2.1-6.9); NEUTROPHILS % 79.6 % (38.7-80.0); PLATELET COUNT 258 x10e3/uL (140-360); RED BLOOD COUNT 4.46 x10e6/uL (3.6-5.1); RED CELL DISTRIBUTION WIDTH 14.4 % (11.7-14.4)
[2019-08-28 16:43] LABS: STREPTOCOCCUS GRP A ANTIGEN NEGATIVE (NEGATIVE)
[2019-08-28 16:47] LABS: INR 1.09; PROTHROMBIN TIME 14.8 seconds (11.9-14.5)
[2019-08-28 16:48] LABS: PARTIAL THROMBOPLASTIN TIME 27.3 seconds (23.8-35.5)
--- NOTE | 2019-08-28 16:52 | Diagnostic Imaging Report ---
EXAMINATION: CHEST SINGLE (PORTABLE) INDICATION: Shortness of breath COMPARISON: Chest radiograph 06/21/2018 FINDINGS: LINES/TUBES:EKG leads overlie the chest. LUNGS:The lungs are moderately inflated. There is perihilar fullness and indistinctness of the pulmonary vasculature. Left basilar patchy opacity. PLEURA:Small left pleural effusion. No pneumothorax. MEDIASTINUM:Cardiomediastinal silhouette is stably enlarged. Atherosclerotic calcifications of the thoracic aorta. Postoperative findings of prior CABG. BONES/SOFT TISSUES:No acute osseous injury. ABDOMEN:No free air under the diaphragm. IMPRESSION: New small left pleural effusion. Patchy opacity at the left lung base, likely associated subsegmental atelectasis. Unchanged cardiomegaly and pulmonary vascular congestion. Signed by: Brad Booth MD on 08/28/2019 4:50 PM
[2019-08-28 16:54] LABS: INFLUENZAE A&B ANTIGEN (RAPID) POSITIVE FLU A (NEGATIVE)
[2019-08-28 16:57] LABS: ALBUMIN/GLOBULIN RATIO 1.1 (0.8-2.0); CALCIUM 8.7 mg/dL (8.4-10.2); CREATININE, SERUM 1.3 mg/dL (0.57-1.11)
[2019-08-28 17:17] LABS: CREATINE KINASE MB 1.8 ng/mL (0-5.0); THYROID STIMULATING HORMONE 2.356 uIU/mL (0.350-4.940)
[2019-08-28] MEDS ORDERED: ONDANSETRON HCL INJ 2MG/ML 2ML 2 MG/ML VIAL IV PRN (17:45)
[2019-08-28] MEDS ORDERED: ALBUTEROL/IPRATROPIUM 3 ML NEB NEB PRN (17:45)
[2019-08-28] MEDS ORDERED: MORPHINE SULFATE 2 MG/ML SYR 1ML IV PRN (17:45)
[2019-08-28] MEDS: OSELTAMIVIR PHOSPHATE 75 MG CAP PO SCH (18:46)
[2019-08-28] MEDS ORDERED: AMIODARONE HCL200 MG PO (19:04)
[2019-08-28] MEDS ORDERED: METOPROLOL TART50 MG PO (19:04)
--- NOTE | 2019-08-28 20:23 | NUR ---
PATIENT LAYING IN BED ON CELL PHONE, NO DISTRESS NOTED .
[2019-08-28] MEDS ORDERED: VANCOMYCIN 1GM/NS 250 ML 250 ML IV ONE (21:00)
[2019-08-28 21:12] VITALS: BP 181/85
[2019-08-28] MEDS: FAMOTIDINE 20 MG/2 ML VIAL IV SCH (22:14)
[2019-08-28] MEDS ORDERED: SODIUM CHLORIDE 0.9% 250ML 250 ML ONE (22:42)
[2019-08-28] MEDS: ALBUTEROL/IPRATROPIUM 3 ML NEB NEB SCH (22:50)
[2019-08-28] MEDS: BUDESONIDE 0.25 MG/2 ML NEB NEB SCH (22:50)
[2019-08-29] VITALS (9 sets, daily range): BP systolic 126–181; BP diastolic 76–101
[2019-08-29] MEDS ORDERED: HYDRALAZINE HCL 25 MG TAB PO PRN
[2019-08-29] MEDS ORDERED: ACETAMINOPHEN 325 MG TAB PO PRN
[2019-08-29] MEDS ORDERED: BENZONATATE 100 MG CAP PO PRN
[2019-08-29] MEDS ORDERED: LOSARTAN POTASSIUM 25 MG TAB PO ONE (00:15)
[2019-08-29] MEDS ORDERED: METOPROLOL TARTRATE 50 MG TAB PO ONE (00:15)
[2019-08-29] MEDS: GUAIFENESIN/CODEINE 10 ML CUP PO PRN ×2 (00:19→21:02)
[2019-08-29] MEDS: ALBUTEROL/IPRATROPIUM 3 ML NEB NEB SCH ×4 (01:55→19:45)
--- NOTE | 2019-08-29 02:22 | NUR ---
PT IS TRANSFERRED FROM ER .PT IS AOX3 .PT HAS FLU AND ISOLATION PT HAS SOB LEFT AC18G S/L TELE 19 SR .BLACK SPOT ALL OVER THE BODY B/P WAS HIGH NOTIFIED DR SANCHEZ AND RENEWED HOME MEDICATION AND GIVEN B/P .FAMILY AT THE BEDSIDE .BED LOWER POSITION .CALL LIGHT WITH IN REACH CONTINUE TO MONITOR
--- NOTE | 2019-08-29 03:43 | Consultation ---
DATE OF CONSULTATION: Pulmonary Consultation REASON FOR CONSULT: Shortness of breath. HISTORY OF PRESENT ILLNESS: Ms. Will is a 79-year-old female. She presented to the emergency room with shortness of breath. She is a regular patient of Dr. Dexter Arriaza. She came in because she was having increasing lethargic arthralgias, myalgias going on for last 4-[address] Arriaza last week and was prescribed some antibiotic. She denies any complaints of chest pain. She was having increasing cough, shortness of breath. She received flu vaccine this year. She reports that shortness of breath was initially on exertion, then started having on rest. It progressively got worse, so she decided to come to the emergency room. She denies any nausea, vomiting, or diarrhea. REVIEW OF SYSTEMS: GENERAL: Denies any fever or chills. HEAD: Denies any head trauma. ENT: Denies any earache. CVS: Denies any chest pain. RESPIRATORY: Shortness of breath. The rest of the review of systems are negative except as in HPI. PAST MEDICAL HISTORY: Hypertension, obesity. FAMILY AND SOCIAL HISTORY: She does not smoke. Does not drink. PHYSICAL EXAMINATION: VITAL SIGNS: Temperature 99.8, pulse of 83, blood pressure 175/91, T-max of 101.7. HEENT: Head is atraumatic, normocephalic. NECK: Supple. CHEST: Wheezing bilaterally. HEART: S1, S2 audible. ABDOMEN: Soft. EXTREMITIES: Bilateral pedal edema, left more than the right. NEUROLOGIC: Awake, alert. No focal neurologic deficit. LABORATORY DATA: White count of 9000, hemoglobin 13.5. Chemistry, 2.4, now 2.0. Sodium 139, potassium 4.0, creatinine 1.3. Chest x-ray showing possible left-sided infiltrate, possible pneumonia. ASSESSMENT: Ms. Will is a 79-year-old female, came in with shortness of breath, lethargy, weakness, likely has pneumonia and Influenza is positive. PLAN: Continue Tamiflu. Agree with IV Rocephin and azithromycin. I will give one dose of vancomycin. Oxygen as needed. Change the nebulizer to standing. We will do venous Dopplers bilaterally. Thank you for this consult. Ferguson MD SUNNY Carvajal/JUAN /[id number]
--- NOTE | 2019-08-29 06:03 | NUR ---
PT RESTING .DENIES PAIN C/O NAUSEA AND GIVEN ZOFRAN .CALL LIGHT WITH IN REACH .CONTINUE TO MONITOR .PT HAS VTACH DURING THE SHIFT
[2019-08-29 06:47] LABS: BASOPHILS % 0.4 % (0.0-1.0); HEMATOCRIT 40.3 % (34.2-44.1); HEMOGLOBIN 12.7 g/dL (12.0-16.0); LYMPHOCYTES # (AUTO) 0.9 (1.0-3.2); LYMPHOCYTES % 12.6 % (18.0-39.1); MEAN CORPUSCULAR HEMOGLOBIN 29.9 pg (28-32); MEAN CORPUSCULAR HGB CONC 31.5 g/dL (31-35); MEAN CORPUSCULAR VOLUME 94.8 fL (81-99); MONOCYTES # (AUTO) 0.9 (0.2-0.8); MONOCYTES % 13.5 % (4.4-11.3); NEUTROPHILS % 72.9 % (38.7-80.0); PLATELET COUNT 193 x10e3/uL (140-360); RED BLOOD COUNT 4.25 x10e6/uL (3.6-5.1); RED CELL DISTRIBUTION WIDTH 14.6 % (11.7-14.4)
[2019-08-29 07:07] LABS: ALBUMIN 3.5 g/dL (3.5-5.0); ANION GAP 13.1 mmol/L (8-16); CALCIUM 8.5 mg/dL (8.4-10.2); CHOL/HDL RATIO 4.8 (3.0-3.6); CREATININE, SERUM 1.21 mg/dL (0.57-1.11); POTASSIUM 4.1 mmol/L (3.5-5.1)
[2019-08-29] MEDS: BUDESONIDE 0.25 MG/2 ML NEB NEB SCH ×2 (07:15→19:45)
--- NOTE | 2019-08-29 07:21 | NUR ---
BEDSIDE REPORT GIVEN TO THE ONCOMING NURSE
[2019-08-29 07:50] LABS: CREATINE KINASE MB 1.4 ng/mL (0-5.0)
[2019-08-29] MEDS ORDERED: ATORVASTATIN 10 MG TAB PO SCH (09:00)
[2019-08-29] MEDS: ALLOPURINOL 100 MG TAB PO SCH ×2 (09:04→17:21)
[2019-08-29] MEDS: ASPIRIN 81 MG CHEW TAB PO SCH (09:04)
[2019-08-29] MEDS: OSELTAMIVIR PHOSPHATE 75 MG CAP PO SCH ×2 (09:04→17:21)
[2019-08-29] MEDS: AMIODARONE HCL 200 MG TAB PO SCH (09:04)
[2019-08-29] MEDS: FAMOTIDINE 20 MG/2 ML VIAL IV SCH ×2 (09:04→21:02)
[2019-08-29] MEDS: METOPROLOL TARTRATE 50 MG TAB PO SCH (09:06)
[2019-08-29] MEDS: LOSARTAN POTASSIUM 25 MG TAB PO SCH (09:06)
--- NOTE | 2019-08-29 09:44 | Diagnostic Imaging Report ---
EXAM: CT Chest WITHOUT intravenous contrast 08/29/2019 9:05 AM INDICATION: Shortness of breath COMPARISON: Chest radiograph 08/28/2019 TECHNIQUE: Chest was scanned utilizing a multidetector helical scanner from the lung apex through the level of the adrenal glands without administration of IV contrast. Coronal and sagittal reformations were obtained. Routine protocol was performed. IV CONTRAST: None RADIATION DOSE: Total DLP: 497 mGy*cm. Dose modulation, iterative reconstruction, and/or weight based adjustment of the mA/kV was utilized to reduce the radiation dose to as low as reasonably achievable. COMPLICATIONS: None FINDINGS: LINES/ TUBES: None. LUNGS AND AIRWAYS: The central airways are patent. No focal consolidation or pulmonary edema. Bibasilar dependent subsegmental atelectasis. Mild smooth interlobular septal thickening and scattered groundglass opacities, suggestive of pulmonary interstitial edema and mild airspace edema. PLEURA: Small right pleural effusion. Trace left pleural effusion. HEART AND MEDIASTINUM: Heterogeneous thyroid gland. No supraclavicular, axillary, mediastinal lymphadenopathy. No definite hilar lymphadenopathy. Multichamber cardiomegaly. Atherosclerotic calcifications involve the aorta, coronary arteries, and proximal great vessels. The main pulmonary artery is prominent, measuring up to 3.6 cm. UPPER ABDOMEN: No acute findings. BONES: No acute osseous injury. No suspicious lytic or blastic lesions. Sternotomy wires in place. SOFT TISSUES: Unremarkable. IMPRESSION: Cardiomegaly, pulmonary interstitial edema and mild airspace edema. No focal pneumonia. Small right pleural effusion. Trace left pleural effusion. Bibasilar subsegmental atelectasis. Signed by: Brad Booth MD on 08/29/2019 9:42 AM
[2019-08-29] MEDS ORDERED: FUROSEMIDE INJ 10 MG/ML 4 ML VIAL IV SCH (11:15)
[2019-08-29] MEDS: LEVOFLOXACIN 500 MG TAB PO SCH (11:41)
[2019-08-29] MEDS: POTASSIUM CHLORIDE 10MEQ EA PO SCH ×2 (11:41→17:21)
[2019-08-29] MEDS ORDERED: ONDANSETRON HCL 4 MG ORAL DISINTEGRATING TAB PO PRN (12:00)
[2019-08-29 13:03] LABS: CREATINE KINASE MB 1.1 ng/mL (0-5.0)
[2019-08-29] MEDS: FUROSEMIDE INJ 10 MG/ML 4 ML VIAL IV SCH ×2 (14:49→21:09)
--- NOTE | 2019-08-29 14:50 | NUR ---
Assisted patient to use bed side commode, sitting up in bed this time, denies any SOB or pain, no distress noted, keep monitoring. Dr Anjelica Bailey's BANDAGE MAKER had rounds
--- NOTE | 2019-08-29 15:25 | NUR ---
Nutrition Screen Note RD Recommendation for Physician: -Recommend heart healthy diet Plan of Care: RD following, monitoring for tolerance and adequacy Nutrition reason for involvement: Diagnosis - CHF Primary Diagnose(s): CHF, influenza A, pneumonia PMH: HTN, obesity Ht: 65 in Wt:265 lb BMI: 44.1 kg/m2 IBW:[address] Assessment: (08/29) Chart reviewed. Labs and meds reviewed. Pt is a 79 year old female admitted with CHF, influenza A, and pneumonia. Pt reports a decreased appetite and eating <50% of her meals for the past week. Pt was not interested in a nutrition supplement due to poor intake. Pt reported she had weighed 230 lbs a year ago and had gained weight since then. Pt currently has a weight of 265 lbs in chart. Pt reports some nausea. No chewing/swallowing issues. Will continue to monitor Current Diet: ADA 1800 kcal Malnutrition Evaluation (08/29) The patient does not meet criteria for a specified degree of malnutrition at this time. Will re-evaluate at follow-up as appropriate. Diet Education Needs Assessment: Pt was not interested in diet education materials at time of visit Nutrition Care Level: moderate Signed: Felicia Ellis, RD, LD
[2019-08-29 15:29] LABS: BILIRUBIN,URINE NEGATIVE (NEGATIVE); CLARITY,URINE CLEAR (CLEAR); COLOR,URINE YELLOW (YELLOW); KETONES,URINE NEGATIVE (NEGATIVE); LEUKOCYTE ESTERASE ,URINE NEGATIVE (NEGATIVE); NITRITE,URINE NEGATIVE (NEGATIVE); PROTEIN,URINE DIPSTICK NEGATIVE (NEGATIVE); URINE UROBILINOGEN 0.2 mg/dL (0.2 - 1)
[2019-08-29 15:44] LABS: BACTERIA,URINE RARE /HPF; EPITHELIAL CELLS,URINE RARE /LPF; WBC,URINE (MAN) 0-5 /HPF (0-5)
[2019-08-29] MEDS ORDERED: CEFTRIAXONE SOD 1 GM/NS 50 ML 50 ML IV SCH (16:00)
[2019-08-29] MEDS ORDERED: AZITHROMYCIN 500MG/NS 250 ML 250 ML IV SCH (16:00)
--- NOTE | 2019-08-29 19:20 | NUR ---
Received patient asleep, not in distress, with oxygen support, call light within easy reach, bed alarm activated. Will continue to monitor patient
--- NOTE | 2019-08-29 19:52 | Consultation ---
DATE OF CONSULTATION: Cardiology Consult HISTORY OF PRESENT ILLNESS: Betsy Will is a 79-year-old female, with primary history of hypertension, CVA, CAD with previous CAB in 2018, systolic heart failure with EF of 20% to 25%, diabetes, hyperlipidemia, gout, admitted complaining of dyspnea initially on exertion and started having it at rest associated with cough and nausea. She describes as gagging, increasing lethargy, and generalized weakness that started two weeks ago and has worsened in the last five days prior to admission. The patient denies any chest pain, dizziness, or palpitations. The patient denies any fever or any sick contacts. PAST MEDICAL HISTORY: Hypertension, CVA, CAD with previous CABG, diabetes, hyperlipidemia, gout, systolic heart failure. FAMILY AND SOCIAL HISTORY: The patient is nonsmoker and she does not use alcohol or recreational drug. HOME MEDICATIONS: 1. Allopurinol 100 mg tablet daily. 2. Amiodarone 200 mg daily. 3. Aspirin 81 mg daily. 4. Atorvastatin 10 mg daily. 5. Losartan potassium 25 mg daily. 6. Metoprolol 50 mg daily. PHYSICAL EXAMINATION: VITAL SIGNS: Temperature is 99.9, pulse is 78, BP is 165/95, respirations 22, SpO2 is 99% on 3 L nasal cannula. GENERAL APPEARANCE: She is a well-developed, well-nourished. The patient is dyspneic on exertion. HEENT: Head, normocephalic, atraumatic. Pupils are equally round and reactive to light and accommodation. Sclerae are nonicteric. Ears are normal. Oral cavity, mucosa is moist. Throat is clear. NECK AND THYROID: Neck is supple. Full range of motion. No cervical lymphadenopathy. SKIN: Warm and dry. No suspicious lesions. HEART: Regular rate and rhythm. S1 and S2 normal. No murmurs heard. LUNGS: Expiratory wheezing heard. Diminished to throughout lung villa. EXTREMITIES: There is discoloration and +3 edema to bilateral lower extremities. NEUROLOGIC: Nonfocal. Motor strength is normal in upper and lower extremities. Sensory exam is intact. IMPRESSION AND PLAN: The patient is a 79-year-old with history of previous CABG and hypertension, now with dyspnea, admitted for acute on chronic systolic heart failure with EF of 20% to 25%, admitting troponin and BNP elevated, and initial EKG is normal sinus rhythm with PACs. However, there is reported ventricular tachycardia runs and SVT overnight a few hours after admission. 1. Monitor on telemetry. 2. Echocardiogram. 3. Trend BNP and cardiac enzymes. 4. Diuresis with loop diuretic. 5. Monitor intake and output and replace electrolytes as needed. 6. We will do nuclear stress test on Sunday to exclude ischemia. 7. Pharmacology. Continue on ASA, ARB, beta-trino, diuretic and statin and antiarrhythmic amiodarone. Further recommendations will follow according to patient's clinical course. Thank you for this consultation. We will continue to follow. Dictated by Vivian Barney NP MD FRIEDA Mtz/JUAN /[id number]
[2019-08-29] MEDS: ATORVASTATIN 40 MG TAB PO SCH (21:02)
[2019-08-30] VITALS (8 sets, daily range): BP systolic 141–166; BP diastolic 63–84
[2019-08-30] MEDS: ALBUTEROL/IPRATROPIUM 3 ML NEB NEB SCH ×4 (00:42→19:55)
[2019-08-30] MEDS: FUROSEMIDE INJ 10 MG/ML 4 ML VIAL IV SCH ×3 (05:53→22:00)
[2019-08-30] MEDS: BUDESONIDE 0.25 MG/2 ML NEB NEB SCH ×2 (06:42→19:55)
[2019-08-30 07:07] LABS: ANION GAP 13.9 mmol/L (8-16); CALCIUM 8.9 mg/dL (8.4-10.2); CREATININE, SERUM 1.58 mg/dL (0.57-1.11); POTASSIUM 3.9 mmol/L (3.5-5.1)
--- NOTE | 2019-08-30 07:29 | NUR ---
walking rounds done with john RN, call light within reach
[2019-08-30] MEDS: AMIODARONE HCL 200 MG TAB PO SCH (08:55)
[2019-08-30] MEDS: FAMOTIDINE 20 MG/2 ML VIAL IV SCH ×2 (08:55→21:00)
[2019-08-30] MEDS: POTASSIUM CHLORIDE 10MEQ EA PO SCH ×2 (08:55→17:01)
[2019-08-30] MEDS: ALLOPURINOL 100 MG TAB PO SCH ×2 (08:55→17:01)
[2019-08-30] MEDS: ASPIRIN 81 MG CHEW TAB PO SCH (08:55)
[2019-08-30] MEDS: OSELTAMIVIR PHOSPHATE 75 MG CAP PO SCH ×2 (08:55→17:01)
[2019-08-30] MEDS: METOPROLOL TARTRATE 50 MG TAB PO SCH (08:55)
[2019-08-30] MEDS: LOSARTAN POTASSIUM 25 MG TAB PO SCH (08:55)
--- NOTE | 2019-08-30 09:00 | NUR ---
pt assisted to bedside commode. pt family given education on wearing masks for droplet precautions
[2019-08-30] MEDS: LEVOFLOXACIN 500 MG TAB PO SCH (11:50)
--- NOTE | 2019-08-30 18:36 | NUR ---
pt resting in bed watching tv, no distress
--- NOTE | 2019-08-30 19:15 | NUR ---
Bedside shift report completed with morning nurse. Pt alert to name, sitting on couch. Denies pain at this time. Call light within reach. Will continue to monitor,
[2019-08-30] MEDS: ATORVASTATIN 40 MG TAB PO SCH (21:00)
[2019-08-31] VITALS (9 sets, daily range): BP systolic 123–179; BP diastolic 57–80
[2019-08-31] MEDS: ALBUTEROL/IPRATROPIUM 3 ML NEB NEB SCH ×4 (01:10→19:48)
[2019-08-31] MEDS: FUROSEMIDE INJ 10 MG/ML 4 ML VIAL IV SCH ×2 (06:00→20:59)
[2019-08-31] MEDS: BUDESONIDE 0.25 MG/2 ML NEB NEB SCH ×2 (06:47→19:48)
--- NOTE | 2019-08-31 06:50 | NUR ---
BS report with morning nurse. Pt lying in bed, no acute distress noted.
[2019-08-31] MEDS: ALLOPURINOL 100 MG TAB PO SCH ×2 (09:18→17:30)
[2019-08-31] MEDS: POTASSIUM CHLORIDE 10MEQ EA PO SCH ×2 (09:18→17:30)
[2019-08-31] MEDS: FAMOTIDINE 20 MG/2 ML VIAL IV SCH ×2 (09:18→20:59)
[2019-08-31] MEDS: METOPROLOL TARTRATE 50 MG TAB PO SCH (09:18)
[2019-08-31] MEDS: ASPIRIN 81 MG CHEW TAB PO SCH (09:18)
[2019-08-31] MEDS: OSELTAMIVIR PHOSPHATE 75 MG CAP PO SCH ×2 (09:18→17:30)
[2019-08-31] MEDS: AMIODARONE HCL 200 MG TAB PO SCH (09:18)
[2019-08-31] MEDS: LOSARTAN POTASSIUM 25 MG TAB PO SCH (09:20)
[2019-08-31] MEDS: LEVOFLOXACIN 500 MG TAB PO SCH (11:52)
[2019-08-31 12:49] LABS: ANION GAP 16.1 mmol/L (8-16); CALCIUM 9.2 mg/dL (8.4-10.2); CREATININE, SERUM 1.45 mg/dL (0.57-1.11)
[2019-08-31 12:56] LABS: POTASSIUM 3.1 mmol/L (3.5-5.1)
[2019-08-31] MEDS ORDERED: POTASSIUM CHLORIDE 20 MEQ TAB CR PO NR (13:15)
--- NOTE | 2019-08-31 13:17 | NUR ---
k-3.[address] Ulloa orders recvd, patient is stable
--- NOTE | 2019-08-31 19:15 | NUR ---
Completed shift report completed with morning nurse. Pt alert to name, lying in bed HOB 60 degrees. Denies pain at this time. Call light within reach. Will continue to monitor.
[2019-08-31] MEDS: ATORVASTATIN 40 MG TAB PO SCH (20:59)
[2019-09-01] VITALS (7 sets, daily range): BP systolic 121–141; BP diastolic 58–81
[2019-09-01] MEDS: ALBUTEROL/IPRATROPIUM 3 ML NEB NEB SCH ×4 (00:47→19:49)
--- NOTE | 2019-09-01 07:07 | NUR ---
BS shift report with morning nurse. Pt walking to bathroom with steady gait, no acute distress noted.
[2019-09-01] MEDS: BUDESONIDE 0.25 MG/2 ML NEB NEB SCH ×2 (07:08→19:49)
[2019-09-01] MEDS ORDERED: REGADENOSON 0.4 MG/5 ML SYR IV ONE (08:46)
[2019-09-01] MEDS: FUROSEMIDE INJ 10 MG/ML 4 ML VIAL IV SCH ×2 (09:00→20:57)
[2019-09-01] MEDS: ASPIRIN 81 MG CHEW TAB PO SCH (09:00)
[2019-09-01] MEDS: OSELTAMIVIR PHOSPHATE 75 MG CAP PO SCH ×2 (09:00→17:03)
[2019-09-01] MEDS: ALLOPURINOL 100 MG TAB PO SCH ×2 (09:00→17:03)
[2019-09-01] MEDS: FAMOTIDINE 20 MG/2 ML VIAL IV SCH ×2 (09:06→20:57)
--- NOTE | 2019-09-01 09:21 | NUR ---
Patient off the unit for Stress test, stable
[2019-09-01] MEDS ORDERED: POTASSIUM CHLORIDE 10MEQ EA PO ONE (10:20)
[2019-09-01] MEDS: AMIODARONE HCL 200 MG TAB PO SCH (15:22)
[2019-09-01] MEDS: POTASSIUM CHLORIDE 10MEQ EA PO SCH ×2 (15:23→17:03)
[2019-09-01] MEDS: LOSARTAN POTASSIUM 25 MG TAB PO SCH (15:23)
[2019-09-01] MEDS: METOPROLOL TARTRATE 50 MG TAB PO SCH (15:24)
[2019-09-01] MEDS: LEVOFLOXACIN 500 MG TAB PO SCH (15:24)
--- NOTE | 2019-09-01 19:44 | NUR ---
RECEIVED PT IN BED AOX3 .DENIES PAIN .PT DOES NOT SIGN THE CONSENT TO DO CARDIAC CATH .PT WANTS TO TALK HER DAUGHTER AND DR MONREAL .CALL LIGHT WITH IN REACH .CONTINUE TO MONITOR
[2019-09-01] MEDS: ATORVASTATIN 40 MG TAB PO SCH (20:57)
--- NOTE | 2019-09-01 22:51 | Operative Report ---
DATE OF PROCEDURE: 09/01/2019 SURGEON: Abraham Bailey MD PROCEDURE: Lexiscan nuclear stress test. INDICATION: Acute on chronic systolic congestive heart failure. TECHNIQUE: The patient was given 11 mCi of Myoview. Resting images were obtained in the horizontal long axis, vertical long axis, and short axis. The patient was then hooked up to the EKG machine. Lexiscan was infused over 15 seconds. During Lexiscan infusion, the patient had no chest pain and no EKG changes. Immediately after Lexiscan infusion, the patient was given 33 mCi of Myoview. Stress images were obtained 30 minutes after completion of Lexiscan infusion. Stress images were obtained in the horizontal long axis, vertical long axis, and short axis. Results as follows: 1. The resting EKG demonstrated normal sinus rhythm with nonspecific ST and T-wave changes. 2. There were no EKG changes and no symptoms during Lexiscan infusion. 3. There is diminished perfusion to the lateral wall and proximal anterior wall on the stress images. 4. The left ventricle was enlarged with global hypokinesis and an ejection fraction of 34%. CONCLUSION: The patient has a reversible defect in the anterolateral wall concerning for myocardial ischemia. The patient has left ventricular dysfunction with an ejection fraction of 34%. Abraham Bailey MD [facility]/MODL /[id number] cc: Juan Miguel Ulloa MD
[2019-09-02] VITALS: BP 136/69
[2019-09-02] MEDS: ALBUTEROL/IPRATROPIUM 3 ML NEB NEB SCH ×3 (00:25→13:00)
[2019-09-02 04:00] VITALS: BP 138/63
--- NOTE | 2019-09-02 06:13 | NUR ---
PT RESTED DURING THE NIGHT .PT IS NOT SURE ABOUT THE CARDIAC [place] TODAY .CALL LIGHT WITH IN REACH .CONTINUE TO MONITOR
[2019-09-02] MEDS: BUDESONIDE 0.25 MG/2 ML NEB NEB SCH (07:00)
[2019-09-02] MEDS ORDERED: HEPARIN SOD (PORCINE) 1000 UNIT/ML 30ML ONE (07:08)
--- NOTE | 2019-09-02 07:08 | NUR ---
BEDSIDE REPORT GIVEN TO THE ONCOMING NURSE
[2019-09-02] MEDS ORDERED: FENTANYL CITRATE/PF 100MCG/2 ML INJ ONE (07:09)
[2019-09-02] MEDS ORDERED: MIDAZOLAM HCL 2 MG/2 ML VIAL ONE (07:09)
[2019-09-02] MEDS ORDERED: LIDOCAINE HCL 2% LOCAL 20 ML VIAL ONE (07:09)
[2019-09-02] MEDS ORDERED: IOPAMIDOL 370 MG/ML 200 ML INFUS..BTL INJ ONE ×2 (07:11→07:57)
[2019-09-02] MEDS ORDERED: HEPARIN SOD/SOD CHLORIDE 2,000 ML ONE (07:11)
[2019-09-02] MEDS ORDERED: SODIUM CHLORIDE 0.9% 1000ML 1,000 ML ONE (07:11)
[2019-09-02] MEDS ORDERED: NITROGLYCERIN/D5W 200 MCG/ML 0 ML ONE (07:12)
[2019-09-02 08:00] VITALS: BP 173/75
[2019-09-02 08:35] VITALS: BP 173/75
[2019-09-02] MEDS ORDERED: POTASSIUM CHLORIDE 10MEQ EA PO SCH (09:00)
[2019-09-02] MEDS ORDERED: FUROSEMIDE 40 MG TAB PO SCH (09:00)
[2019-09-02] MEDS: POTASSIUM CHLORIDE 10MEQ EA PO SCH (09:32)
[2019-09-02] MEDS: LOSARTAN POTASSIUM 25 MG TAB PO SCH ×2 (09:32→10:15)
[2019-09-02] MEDS: ASPIRIN 81 MG CHEW TAB PO SCH ×2 (09:32→10:15)
[2019-09-02] MEDS: AMIODARONE HCL 200 MG TAB PO SCH ×2 (09:32→10:15)
[2019-09-02] MEDS: METOPROLOL TARTRATE 50 MG TAB PO SCH ×2 (09:33→10:16)
[2019-09-02] MEDS: LEVOFLOXACIN 500 MG TAB PO SCH ×2 (09:33→10:16)
[2019-09-02] MEDS: OSELTAMIVIR PHOSPHATE 75 MG CAP PO SCH ×2 (09:33→10:15)
[2019-09-02] MEDS: ALLOPURINOL 100 MG TAB PO SCH ×2 (09:33→10:15)
[2019-09-02 09:49] LABS: ANION GAP 13.8 mmol/L (8-16); CALCIUM 8.9 mg/dL (8.4-10.2); CREATININE, SERUM 1.44 mg/dL (0.57-1.11); POTASSIUM 3.8 mmol/L (3.5-5.1)
--- NOTE | 2019-09-02 11:31 | NUR ---
IMM LETTER EXPLAINED TO PT. PT VERBALIZED UNDERSTANDING. IMM LETTER SIGNED. COPY TO PT AND COPY TO CHART.
[2019-09-02 12:00] VITALS: BP 144/81
--- NOTE | 2019-09-02 14:17 | Operative Report ---
DATE OF PROCEDURE: 09/02/2019 SURGEON: Abraham Bailey MD PROCEDURE: Left heart catheterization with grafts. INDICATION: Acute on chronic systolic heart failure. COMPLICATIONS: None. ANESTHESIA: Versed, fentanyl, and lidocaine. TECHNIQUE: The right groin was draped and prepped in the usual fashion. The area was anesthetized with lidocaine. Standard Seldinger technique was used to place a 6-[place]izen [place] sheath into the right femoral artery without difficulty. A JL4 catheter was used to selectively engage the left coronary artery. A 3DRC catheter was used to selectively engage the right coronary artery. A pigtail catheter was used to perform a left ventriculogram and an aortogram. An internal mammary artery catheter was used to selectively engage the left internal mammary artery graft to the left anterior descending artery. A left coronary bypass catheter was used to selectively engage the saphenous vein graft to the obtuse marginal branch of the circumflex artery. A Perclose device was used for closure. There were no complications. Results are as follows: 1. There is a normal left main trunk. 2. There is a large left anterior descending artery, which gave rise to a medium-sized diagonal branch. There was a 100% occlusion of the left anterior descending artery in the mid vessel. 3. The AV circumflex artery is a very large dominant vessel, which gave rise to 2 large bifurcating obtuse marginal branches. There was a 90% stenosis in the first bifurcating obtuse marginal branch. 4. There was a nondominant right coronary artery, which was 100% occluded proximally. 5. The left ventriculogram demonstrated global hypokinesis with an ejection fraction of 25% to 30%. There was moderate to severe left ventricular dysfunction. 6. The aortogram demonstrated no dissection and no aneurysm. 7. The left internal mammary artery graft to the left anterior descending artery was widely patent. 8. The saphenous vein graft to the obtuse marginal branch of the circumflex artery was widely patent. CONCLUSION: The patient's grafts to the left anterior descending artery and dominant circumflex artery are both patent. I would favor medical management for the patient's coronary artery disease at this time. Abraham Bailey MD [facility]/MOD[facility] /[id number] cc: Juan Miguel Ulloa MD
[2019-09-02 16:00] VITALS: BP 109/61
--- NOTE | 2019-09-02 19:58 | NUR ---
PT IS DISCHARGED DURING THE SHIFT CHANGE .
--- NOTE | 2019-11-25 22:13 | History and Physical ---
CHIEF COMPLAINT: Increasing shortness of breath. HISTORY OF PRESENT ILLNESS: The patient is a 79-year-old female, who complained of increasing shortness of breath for the past few days. The patient also has some nonradiating atypical chest pain. The chest pain improved. The patient is otherwise stable. The patient is admitted for further evaluation. PAST MEDICAL HISTORY: Including hypertension, diabetes type 2, history of ischemic CVA, dyslipidemia, gout, hemorrhoids. PAST SURGICAL HISTORY: Hysterectomy and cataract surgically removed. SOCIAL HISTORY: The patient does not smoke or use alcohol. No regular drugs. ALLERGIES: NO KNOWN ALLERGIES. HOME MEDICATIONS: List is reviewed. REVIEW OF SYSTEMS: As mentioned above. PHYSICAL EXAMINATION: VITAL SIGNS: Temperature is 98, blood pressure 207/105, pulse rate is 81, respirations 20. GENERAL: The patient is not in acute distress. She is awake. HEENT: Normocephalic and atraumatic. Pupils reactive. Anicteric. NECK: Supple grossly. PULMONARY: Diminished breath sounds at the bases with rales. CARDIOVASCULAR: S1, S2. Regular rate and rhythm. ABDOMEN: Soft, nontender, non-distention. EXTREMITIES: No gross cyanosis or edema. NEUROLOGIC: No gross focal deficits. LABORATORY DATA: Sodium is 139, potassium 4.1, chloride 109, bicarb 21, BUN 20, creatinine 1.2, glucose 111. WBC 6.9, hemoglobin 12.7, hematocrit 40, platelets are 193. IMPRESSION: 1. Acute on chronic congestive heart failure exacerbation. 2. Hypertensive urgency. 3. Recent fever, resolved. 4. Multiple chronic baseline problems. PLAN: Diuresis. Empiric antibiotics until CT of the chest obtained. Consultation with Cardiology. Echocardiogram. We will monitor the patient closely. MD BRICE Li/SANTAL /[id number]
--- NOTE | 2019-11-26 00:43 | Discharge Summary ---
FINAL DIAGNOSES: 1. [id number] systolic dysfunction, congestive heart failure associated with ejection fraction of 25%. 2. Abnormal stress test, status post cardiac catheterization. No percutaneous coronary intervention. 3. Baseline coronary artery disease with previous bypass graft surgery, patent graft the left internal mammary artery to the left anterior descending and saphenous vein graft to the circumflex. Graft is okay basically. 4. Hypertensive urgency. 5. LifeVest required. SUMMARY: The patient is a 79-year-old female, came in with increasing shortness of breath, found to have an ejection fraction of 25-30%. The patient with systolic congestive heart failure acute exacerbation, on chronic disease. The patient also underwent a cardiac stress test that was positive and then subsequently a cardiac catheterization showed all of her grafts are patent. The patient is stable. Discharged home. Continue with home medication. New prescription given. The patient will follow up as an outpatient for any adjustment of her medication. She will follow up with Dr. Abraham Bailey, Cardiology, on outpatient. The patient will go home and follow up closely for medication adjustment. The patient has a LifeVest arrangement. She will follow up for repeated echocardiogram and see whether the patient will need an ICD. Discussed with the patient at length. MD BRICE Li/JUAN /[id number]
== END 2019-09-02 19:00 | disposition home or self-care (01) | DRG 286 ==
LOC: ER 15:28 → ERHOLD 18:06 → MED/SURG3 21:12
PROVIDERS: ADMIT Internal Medicine; ATTEND Internal Medicine
PROC: 4A023N7 Measurement of Cardiac Sampling and Pressure, Left Heart, Percutaneous Approach (ICD-10-PCS; principal; 2019-09-02)
PROC: B2131ZZ Fluoroscopy of Multiple Coronary Artery Bypass Grafts using Low Osmolar Contrast (ICD-10-PCS; 2019-09-02)
PROC: B2111ZZ Fluoroscopy of Multiple Coronary Arteries using Low Osmolar Contrast (ICD-10-PCS; 2019-09-02)
PROC: B2151ZZ Fluoroscopy of Left Heart using Low Osmolar Contrast (ICD-10-PCS; 2019-09-02)
PROC: B2181ZZ Fluoroscopy of Left Internal Mammary Bypass Graft using Low Osmolar Contrast (ICD-10-PCS; 2019-09-02)
DX: I11.0 Hypertensive heart disease with heart failure (principal); J11.00 Influenza due to unidentified influenza virus with unspecified type of pneumonia; J96.00 Acute respiratory failure, unspecified whether with hypoxia or hypercapnia; I47.1 Supraventricular tachycardia; Z68.41 Body mass index [BMI] 40.0-44.9, adult; I50.23 Acute on chronic systolic (congestive) heart failure; E66.01 Morbid (severe) obesity due to excess calories; E11.9 Type 2 diabetes mellitus without complications; E78.5 Hyperlipidemia, unspecified; Z86.73 Personal history of transient ischemic attack (TIA), and cerebral infarction without residual deficits; Z79.82 Long term (current) use of aspirin; I25.10 Atherosclerotic heart disease of native coronary artery without angina pectoris; Z95.1 Presence of aortocoronary bypass graft; I16.0 Hypertensive urgency
CPT/HCPCS: 36415; 71045; 71250; 78452; 80048; 80053; 80061; 81001; 82550; 82553; 82948; 83518; 83605; 83880; 84443; 84484; 85025; 85610; 85730; 87040; 87070; 87086; 87400; 93005; 93017; 93306; 93459; 93970; 94640; 94664; 97139; 99152; 99153; 99284; A9502; C1760; C1769; J0456; J0696; J1644; J1940; J2001; J2250; J2405; J3010; J3370; J7030; J7050; Q9967

== ENCOUNTER 2020-07-24 23:01 | Inpatient (IN) | payer OTHER ==
[~2020-07-24] VITALS: Ht 165.1 cm; Wt 120.2 kg
[~2020-07-24 23:01] MED LIST changes: +AMIODARONE HCL200 MG PO; +METOPROLOL TART50 MG PO
[2020-07-25] MEDS ORDERED: FUROSEMIDE INJ 10 MG/ML 4 ML VIAL IV ONE (03:30)
[2020-07-25 09:01] LABS: ANION GAP 17.1 mmol/L (8-16); CREATININE, SERUM 1.34 mg/dL (0.57-1.11); POTASSIUM 4.1 mmol/L (3.5-5.1)
[2020-07-25 09:02] LABS: ALBUMIN 3.8 g/dL (3.5-5.0); ALBUMIN/GLOBULIN RATIO 1.1 (0.8-2.0); CALCIUM 8.8 mg/dL (8.4-10.2); CREATINE KINASE MB 0.6 ng/mL (0-5.0)
[2020-07-25 09:06] LABS: BASOPHILS % 0.5 % (0.0-1.0); EOSINOPHILS % 0.1 % (0.0-6.0); HEMATOCRIT 41.5 % (34.2-44.1); HEMOGLOBIN 13.5 g/dL (12.0-16.0); LYMPHOCYTES # (AUTO) 2.7 (1.0-3.2); LYMPHOCYTES % 32.6 % (18.0-39.1); MEAN CORPUSCULAR HEMOGLOBIN 29.7 pg (28-32); MEAN CORPUSCULAR HGB CONC 32.5 g/dL (31-35); MEAN CORPUSCULAR VOLUME 91.4 fL (81-99); MONOCYTES % 11.4 % (4.4-11.3); NEUTROPHILS # (AUTO) 4.6 (2.1-6.9); PLATELET COUNT 220 x10e3/uL (140-360); RED BLOOD COUNT 4.54 x10e6/uL (3.6-5.1); RED CELL DISTRIBUTION WIDTH 14.9 % (11.7-14.4)
[2020-07-25 10:30] LABS: CREATINE KINASE MB 0.8 ng/mL (0-5.0)
[2020-07-25 13:29] VITALS: BP 164/102
[2020-07-25 13:33] VITALS: BP 164/102
[2020-07-25 15:43] VITALS: BP 151/98
[2020-07-25] MEDS: ALLOPURINOL 100 MG TAB PO SCH (16:59)
[2020-07-25] MEDS ORDERED: METOPROLOL TARTRATE 50 MG TAB PO ONE (18:00)
[2020-07-25 18:16] LABS: CREATINE KINASE MB 0.9 ng/mL (0-5.0)
[2020-07-25 20:00] VITALS: BP 135/90
[2020-07-25 21:00] VITALS: BP 135/90
[2020-07-25] MEDS ORDERED: ENOXAPARIN SOD INJ 40 MG/0.4 ML SYR SC SCH (21:00)
[2020-07-25] MEDS: ATORVASTATIN 10 MG TAB PO SCH (22:40)
[2020-07-26] VITALS (8 sets, daily range): BP systolic 107–145; BP diastolic 33–97
[2020-07-26] MEDS: FUROSEMIDE INJ 10 MG/ML 4 ML VIAL IV SCH ×3 (01:12→20:00)
[2020-07-26 06:22] LABS: BASOPHILS % 0.5 % (0.0-1.0); EOSINOPHILS # (AUTO) 0.1 (0.0-0.4); EOSINOPHILS % 0.7 % (0.0-6.0); HEMATOCRIT 41.1 % (34.2-44.1); HEMOGLOBIN 13.3 g/dL (12.0-16.0); LYMPHOCYTES # (AUTO) 3.3 (1.0-3.2); LYMPHOCYTES % 39.3 % (18.0-39.1); MEAN CORPUSCULAR HEMOGLOBIN 29.2 pg (28-32); MEAN CORPUSCULAR HGB CONC 32.4 g/dL (31-35); MEAN CORPUSCULAR VOLUME 90.3 fL (81-99); MONOCYTES # (AUTO) 0.9 (0.2-0.8); MONOCYTES % 11.2 % (4.4-11.3); NEUTROPHILS % 47.9 % (38.7-80.0); PLATELET COUNT 232 x10e3/uL (140-360); RED BLOOD COUNT 4.55 x10e6/uL (3.6-5.1); RED CELL DISTRIBUTION WIDTH 15.4 % (11.7-14.4)
[2020-07-26 06:40] LABS: ALBUMIN 3.9 g/dL (3.5-5.0); ALBUMIN/GLOBULIN RATIO 1.1 (0.8-2.0); ANION GAP 17.3 mmol/L (8-16); CALCIUM 8.8 mg/dL (8.4-10.2); CREATININE, SERUM 1.37 mg/dL (0.57-1.11); POTASSIUM 3.3 mmol/L (3.5-5.1)
[2020-07-26] MEDS ORDERED: POTASSIUM CHLORIDE 10MEQ EA PO ONE (08:15)
[2020-07-26] MEDS ORDERED: METOPROLOL TARTRATE 50 MG TAB PO ONE (08:15)
[2020-07-26] MEDS: AMIODARONE HCL 200 MG TAB PO SCH (09:00)
[2020-07-26] MEDS: ASPIRIN 81 MG CHEW TAB PO SCH (09:00)
[2020-07-26] MEDS ORDERED: METOPROLOL TARTRATE 50 MG TAB PO SCH (09:00)
[2020-07-26] MEDS: ALLOPURINOL 100 MG TAB PO SCH ×2 (09:01→16:35)
[2020-07-26] MEDS: ENOXAPARIN SOD INJ 60 MG/0.6 ML SYR SC SCH ×2 (09:01→20:18)
[2020-07-26] MEDS: LOSARTAN POTASSIUM 25 MG TAB PO SCH (09:01)
[2020-07-26] MEDS ORDERED: POTASSIUM CHLORIDE 20 MEQ TAB CR PO ONE (11:30)
[2020-07-26] MEDS ORDERED: ONDANSETRON HCL INJ 2MG/ML 2ML 2 MG/ML VIAL IV PRN (12:15)
[2020-07-26] MEDS: ATORVASTATIN 10 MG TAB PO SCH (20:18)
[2020-07-27] VITALS (9 sets, daily range): BP systolic 104–134; BP diastolic 75–87
[2020-07-27] MEDS: FUROSEMIDE INJ 10 MG/ML 4 ML VIAL IV SCH ×3 (03:44→20:00)
[2020-07-27] MEDS: METOPROLOL TARTRATE 50 MG TAB PO SCH ×3 (05:25→17:41)
[2020-07-27 08:22] LABS: ANION GAP 16.8 mmol/L (8-16); CALCIUM 8.8 mg/dL (8.4-10.2); CREATININE, SERUM 1.59 mg/dL (0.57-1.11); POTASSIUM 3.8 mmol/L (3.5-5.1)
[2020-07-27] MEDS: AMIODARONE HCL 200 MG TAB PO SCH (08:39)
[2020-07-27] MEDS: ASPIRIN 81 MG CHEW TAB PO SCH (08:39)
[2020-07-27] MEDS: LOSARTAN POTASSIUM 25 MG TAB PO SCH (08:39)
[2020-07-27] MEDS: ENOXAPARIN SOD INJ 60 MG/0.6 ML SYR SC SCH ×2 (08:40→20:03)
[2020-07-27] MEDS: ALLOPURINOL 100 MG TAB PO SCH ×2 (08:40→17:41)
[2020-07-27] MEDS: ATORVASTATIN 10 MG TAB PO SCH (20:03)
[2020-07-28] VITALS (9 sets, daily range): BP systolic 107–131; BP diastolic 71–89
[2020-07-28] MEDS: FUROSEMIDE INJ 10 MG/ML 4 ML VIAL IV SCH ×3 (03:30→21:23)
[2020-07-28] MEDS: ENOXAPARIN SOD INJ 60 MG/0.6 ML SYR SC SCH (09:00)
[2020-07-28] MEDS: LOSARTAN POTASSIUM 25 MG TAB PO SCH (09:00)
[2020-07-28] MEDS: AMIODARONE HCL 200 MG TAB PO SCH (09:00)
[2020-07-28] MEDS: METOPROLOL TARTRATE 50 MG TAB PO SCH ×2 (09:00→16:31)
[2020-07-28] MEDS: ALLOPURINOL 100 MG TAB PO SCH ×2 (09:00→16:31)
[2020-07-28] MEDS: ASPIRIN 81 MG CHEW TAB PO SCH (09:00)
[2020-07-28] MEDS ORDERED: MIDAZOLAM HCL 2 MG/2 ML VIAL ONE (11:42)
[2020-07-28] MEDS ORDERED: LIDOCAINE HCL 2% LOCAL 20 ML VIAL ONE (11:43)
[2020-07-28] MEDS ORDERED: FENTANYL CITRATE/PF 100MCG/2 ML INJ ONE (11:43)
[2020-07-28] MEDS ORDERED: SODIUM CHLORIDE 0.9% 1000ML 2,000 ML ONE (11:43)
[2020-07-28] MEDS ORDERED: SODIUM CHLORIDE 0.9% 500ML 500 ML ONE (11:43)
[2020-07-28] MEDS ORDERED: CEFAZOLIN SOD 2 GM/D5W 50ML 50 ML IV ONE (11:58)
[2020-07-28] MEDS ORDERED: VANCOMYCIN HCL 500 MG ONE (12:02)
[2020-07-28] MEDS ORDERED: SODIUM CHLORIDE 0.9% 250ML 250 ML ONE (12:04)
[2020-07-28] MEDS ORDERED: VANCOMYCIN 1GM/NS 250 ML 250 ML ONE (12:52)
[2020-07-28] MEDS: ATORVASTATIN 10 MG TAB PO SCH (21:23)
[2020-07-29] VITALS (8 sets, daily range): BP systolic 103–138; BP diastolic 68–92
[2020-07-29] MEDS ORDERED: VANCOMYCIN 500MG/NS 0.9% 100ML 100 ML IV ONE (01:00)
[2020-07-29] MEDS: FUROSEMIDE INJ 10 MG/ML 4 ML VIAL IV SCH ×2 (04:58→11:50)
[2020-07-29] MEDS: ASPIRIN 81 MG CHEW TAB PO SCH (08:21)
[2020-07-29] MEDS: AMIODARONE HCL 200 MG TAB PO SCH (08:21)
[2020-07-29] MEDS: METOPROLOL TARTRATE 50 MG TAB PO SCH ×2 (08:22→17:35)
[2020-07-29] MEDS: LOSARTAN POTASSIUM 25 MG TAB PO SCH (08:22)
[2020-07-29] MEDS: ALLOPURINOL 100 MG TAB PO SCH ×2 (08:22→17:36)
[2020-07-29 09:09] LABS: BASOPHILS % 0.3 % (0.0-1.0); EOSINOPHILS % 0.3 % (0.0-6.0); LYMPHOCYTES # (AUTO) 2.5 (1.0-3.2); LYMPHOCYTES % 25.2 % (18.0-39.1); MEAN CORPUSCULAR HEMOGLOBIN 29.7 pg (28-32); MEAN CORPUSCULAR HGB CONC 32.6 g/dL (31-35); MEAN CORPUSCULAR VOLUME 91.3 fL (81-99); MONOCYTES # (AUTO) 1.1 (0.2-0.8); MONOCYTES % 10.9 % (4.4-11.3); NEUTROPHILS # (AUTO) 6.2 (2.1-6.9); PLATELET COUNT 239 x10e3/uL (140-360); RED BLOOD COUNT 4.71 x10e6/uL (3.6-5.1); RED CELL DISTRIBUTION WIDTH 14.8 % (11.7-14.4)
[2020-07-29 09:36] LABS: ANION GAP 16.6 mmol/L (8-16); CALCIUM 8.9 mg/dL (8.4-10.2); CREATININE, SERUM 1.37 mg/dL (0.57-1.11); POTASSIUM 3.6 mmol/L (3.5-5.1)
[2020-07-29] MEDS: MINOCYCLINE HCL 50 MG CAP PO SCH ×2 (11:53→21:46)
[2020-07-29] MEDS: ATORVASTATIN 10 MG TAB PO SCH (21:45)
[2020-07-29] MEDS: ENOXAPARIN SOD INJ 60 MG/0.6 ML SYR SC SCH (21:58)
[2020-07-30] VITALS: BP 97/71
[2020-07-30 04:00] VITALS: BP 144/74
[2020-07-30 08:14] VITALS: BP 114/77
[2020-07-30 08:22] VITALS: BP 114/77
[2020-07-30] MEDS: LOSARTAN POTASSIUM 25 MG TAB PO SCH (09:08)
[2020-07-30] MEDS: ASPIRIN 81 MG CHEW TAB PO SCH (09:08)
[2020-07-30] MEDS: MINOCYCLINE HCL 50 MG CAP PO SCH (09:09)
[2020-07-30] MEDS: AMIODARONE HCL 200 MG TAB PO SCH (09:09)
[2020-07-30] MEDS: ALLOPURINOL 100 MG TAB PO SCH (09:09)
[2020-07-30] MEDS: FUROSEMIDE INJ 10 MG/ML 4 ML VIAL IV SCH (09:09)
[2020-07-30] MEDS: ENOXAPARIN SOD INJ 60 MG/0.6 ML SYR SC SCH (09:09)
[2020-07-30] MEDS: METOPROLOL TARTRATE 50 MG TAB PO SCH (09:09)
[2020-07-30] MEDS ORDERED: LASIX40 MG PO (09:54)
[2020-07-30] MEDS ORDERED: K-DUR20 MEQ PO (09:55)
[2020-07-30] MEDS ORDERED: ULTRACET TABLE1 EACH PO (09:56)
[2020-07-30] MEDS ORDERED: MINOCYCLINE HCL50 MG PO (10:09)
[2020-07-30] MEDS ORDERED: AMIODARONE HCL200 MG PO (10:17)
[2020-07-30] MEDS ORDERED: ELIQUIS2.5 MG PO (10:17)
== END 2020-07-30 12:40 | disposition home or self-care (01) | DRG 227 ==
LOC: ER 23:24 → ERHOLD 07-25 03:35 → MED/SURG3 07-25 12:44
PROVIDERS: ADMIT Internal Medicine; ATTEND Internal Medicine
PROC: 0JH609Z Insertion of Cardiac Resynchronization Defibrillator Pulse Generator into Chest Subcutaneous Tissue and Fascia, Open Approach (ICD-10-PCS; principal; 2020-07-25)
PROC: 02HK3KZ Insertion of Defibrillator Lead into Right Ventricle, Percutaneous Approach (ICD-10-PCS; 2020-07-25)
PROC: 02H63KZ Insertion of Defibrillator Lead into Right Atrium, Percutaneous Approach (ICD-10-PCS; 2020-07-25)
DX: I11.0 Hypertensive heart disease with heart failure (principal); Z68.41 Body mass index [BMI] 40.0-44.9, adult; I48.92 Unspecified atrial flutter; I42.9 Cardiomyopathy, unspecified; E66.01 Morbid (severe) obesity due to excess calories; I50.23 Acute on chronic systolic (congestive) heart failure; Z20.822 Contact with and (suspected) exposure to COVID-19; I25.10 Atherosclerotic heart disease of native coronary artery without angina pectoris; Z95.1 Presence of aortocoronary bypass graft; E66.9 Obesity, unspecified
CPT/HCPCS: 33249; 36415; 71045; 80048; 80053; 82550; 82553; 83690; 83880; 84484; 85025; 93005; 93306; 99152; 99153; 99251; 99284; C1721; C1769; C1777; C1898; J0690; J1650; J1940; J2001; J2250; J2405; J3010; J3370; J7030; J7040; J7050; U0002

== ENCOUNTER 2022-09-26 20:28 | Emergency (ER) | payer MEDICARE, OTHER ==
[~2022-09-26] VITALS: Ht 165.1 cm; Wt 120.2 kg
[~2022-09-26 20:28] MED LIST changes: +ELIQUIS2.5 MG PO; +K-DUR20 MEQ PO; +LASIX40 MG PO; +MINOCYCLINE HCL50 MG PO; +ULTRACET TABLE1 EACH PO
[2022-09-26 22:04] LABS: CLARITY,URINE CLOUDY (CLEAR); COLOR,URINE YELLOW (YELLOW); KETONES,URINE NEGATIVE (NEGATIVE); LEUKOCYTE ESTERASE ,URINE NEGATIVE (NEGATIVE); NITRITE,URINE NEGATIVE (NEGATIVE); PROTEIN,URINE DIPSTICK >=300 (NEGATIVE); URINE UROBILINOGEN 1 mg/dL (0.2 - 1)
[2022-09-26 22:11] LABS: AMORPHOUS SEDIMENT,URINE MANY (FEW); BACTERIA,URINE FEW /HPF; EPITHELIAL CELLS,URINE MANY /LPF
== END 2022-09-26 22:52 | disposition home or self-care (01) ==
LOC: ER 20:36
DX: R41.0 Disorientation, unspecified (principal); I10 Essential (primary) hypertension; I50.9 Heart failure, unspecified; E78.5 Hyperlipidemia, unspecified; M10.9 Gout, unspecified; R94.31 Abnormal electrocardiogram [ECG] [EKG]; Z95.1 Presence of aortocoronary bypass graft; Z86.73 Personal history of transient ischemic attack (TIA), and cerebral infarction without residual deficits
CPT/HCPCS: 70450; 71046; 81001; 93005; 99283